=== PATIENT | male | born 1965 | race Caucasian/White ===

== ENCOUNTER 2018-02-12 07:01 | Emergency (ER) | payer BC ==
[2018-02-12 07:21] VITALS: BP 124/88
--- NOTE | 2018-02-12 07:38 | UC ---
Upper Extremity HPI - HPI Summary HPI Summary: Right palmar thumb swelling, redness and tenderness this morning. No fever or chills. Hx of MRSA. He was doing work on a property and removing garbage and debris. POssible PW or injury. No trauma. No DM. - History of Current Complaint Chief Complaint: UCUpperExtremity Stated Complaint: RIGHT THUMB PAIN Time Seen by Provider: 02/12/18 07:29 Hx Obtained From: Patient Onset/Duration: Gradual Onset, Lasting Hours Severity Initially: Moderate Severity Currently: Moderate Pain Intensity: 5 Location Of Pain: Is Discrete @ - thumb. Character: Dull, Aching Aggravating Factor(s): Movement Alleviating Factor(s): Rest Associated Signs And Symptoms: Positive: Swelling, Redness. Negative: Fever, Weakness, Numbness/Tingling - Allergies/Home Medications Allergies/Adverse Reactions: Allergies Allergy/AdvReac Type Severity Reaction Status Date / Time No Known Allergies Allergy Verified 02/12/18 07:17 Home Medications: Home Medications Atorvastatin* [Lipitor*] 5 mg PO 1700 02/12/18 [History Confirmed 02/12/18] Ibuprofen TAB* [Advil TAB*] 800 mg PO Q6H PRN 02/12/18 [History Confirmed ] Olmesartan/Hydrochlorothiazide [Benicar Hct 20-12.5 mg] 1 tab PO DAILY 02/12/18 [History Confirmed 02/12/18] PMH/Surg Hx/FS Hx/Imm Hx Previously Healthy: No Cardiovascular History: Hypertension - Surgical History Surgical History: Yes Surgery Procedure, Year, and Place: vasectomy. left hand repair - Family History Known Family History: Positive: Other - No FH of related infections. - Social History Lives: With Family Alcohol Use: Rare Substance Use Type: None Smoking Status (MU): Never Smoked Tobacco Review of Systems Skin: Other - swelling. All Other Systems Reviewed And Are Negative: Yes Physical Exam Triage Information Reviewed: Yes Appearance: Well-Appearing, No Pain Distress, Well-Nourished Vital Signs: Initial Vital Signs Temp 99.0 F 02/12/18 07:12 Pulse 78 02/12/18 07:12 Resp 14 02/12/18 07:12 BP 124/88 02/12/18 07:12 Pulse Ox 100 02/12/18 07:12 Vital Signs Reviewed: Yes Eyes: Positive: Conjunctiva Clear ENT: Positive: Normal ENT inspection Neck: Positive: Supple, Nontender, No Lymphadenopathy Respiratory: Positive: No accessory muscle use. Negative: Respiratory distress Cardiovascular: Positive: Brisk Capillary Refill Abdomen Description: Negative: Distended Musculoskeletal Exam: Other - right thumb palmar swelling and pink skin that is tenderness without fluctuance or crepitus. No pain with passive ROM. No streaking. Neurological: Positive: Alert, Muscle Tone Normal. Negative: Fatigued Psychological: Positive: Age Appropriate Behavior Skin: Negative: rashes Upper Extremity Course/Dx - Course Course Of Treatment: cellulitis. Agrees to return for any worsening. - Differential Dx/Diagnosis Provider Diagnoses: right thumb cellulitis. Discharge - Sign-Out/Discharge Documenting (check all that apply): Discharge/Admit/Transfer - Discharge Plan Condition: Good Disposition: HOME Prescriptions: Sulfamethox/Trimethoprim DS* [Bactrim DS 800/160 TAB*] 1 tab PO BID #20 tab Patient Education Materials: Cellulitis (ED) Referrals: Jatin Godinez DO [Primary Care Provider] - 2 Days - Billing Disposition and Condition Condition: GOOD Disposition: Home
== END 2018-02-12 07:39 | disposition home or self-care (01) ==
LOC: UCCORT 07:01
DX: L03.011 Cellulitis of right finger (principal); I10 Essential (primary) hypertension
CPT/HCPCS: 99202; G0463